=== PATIENT | female | born 1960 | race Caucasian/White ===

== ENCOUNTER 2021-06-11 12:57 | Outpatient (REF) | payer OTHER, SELFPAY ==
[2021-06-11 13:26] VITALS: BP 107/55; PULSE 64; RESP 16; TEMP 36.7; O2SAT 98; BMI 24.1
== END 2021-06-11 12:58 | disposition home or self-care (01) ==
LOC: HO.MS 12:57
PROVIDERS: Visit Provider Ophthalmology
PROC: (CPT 67840; principal; 2021-06-11 14:20)
DX: D23.122 Other benign neoplasm of skin of left lower eyelid, including canthus (principal)
CPT/HCPCS: 67840; 88304; 88305

== ENCOUNTER 2022-07-25 14:47 | Outpatient (REF) | payer OTHER, SELFPAY ==
--- NOTE | ~2022-07-25 | MM_ITS ---
EXAMINATION: MM SCREENING DIGITAL BREAST TOMOSYNTHESIS, BILATERAL CLINICAL INFORMATION: Screening. Asymptomatic. The lifetime risk of breast cancer based on the Tyrer-Cuzick Model is 4.3%. COMPARISON: Mammography: September 25, 2018 and studies dating back to June 01, 2014 TECHNIQUE: Digital breast tomosynthesis is performed in both the craniocaudal and mediolateral oblique views along with computer-aided detection (CAD). Synthesized 2D images are generated from the tomosynthesis. FINDINGS: There are scattered areas of fibroglandular density (ACR BI-RADS breast composition Category b). There are no significant masses, abnormal calcifications, or other abnormalities. MM/MM tomosynthesis screening BI IMPRESSION: No significant changes from prior exam. ASSESSMENT: BI-RADS 1: Negative RECOMMENDATION: Routine annual mammography screening. This patient's information was entered into a reminder system with a target due date for their next mammogram.
== END 2022-07-25 14:48 | disposition home or self-care (01) ==
LOC: HO.MAMMO 14:47
PROVIDERS: Visit Provider Nurse Practitioner Family
DX: Z12.31 Encounter for screening mammogram for malignant neoplasm of breast (principal)
CPT/HCPCS: 77063; 77067

== ENCOUNTER 2023-12-10 02:13 | Emergency (ER) | payer OTHER, SELFPAY ==
--- NOTE | ~2023-12-10 | CT_ITS ---
EXAMINATION: CT ABDOMEN AND PELVIS WITHOUT CONTRAST CLINICAL INFORMATION: Flank pain COMPARISON: 04/04/2020 TECHNIQUE: Multidetector volumetric imaging was performed from the superior aspect of the liver through the pubic symphysis. Sagittal and coronal reformatted images were obtained on the technologist's workstation. This CT examination was performed using dose optimization techniques as appropriate, variously including the following: *Automated exposure control *Adjustment of mA and/or kV according to patient size (this includes techniques or standardized protocols for targeted exams where dose is matched to indication/reason for exam; i.e. extremities or head) *Use of iterative reconstruction technique DLP: 524 mGy-cm FINDINGS: LUNG BASES: The visualized lung bases are unremarkable. LIVER, GALLBLADDER, AND BILIARY TREE: Small area of low attenuation left lobe which could represent a small lesion. This is equivocal. Measures 6 mm. Image 22. The gallbladder is unremarkable with no evidence of radiopaque gallstones, gallbladder wall thickening, or obvious pericholecystic inflammatory changes. PANCREAS: Unremarkable. SPLEEN: Unremarkable. ADRENAL GLANDS: Unremarkable. KIDNEYS AND URETERS: The kidneys are normal in size, shape, and attenuation. No hydronephrosis, hydroureter, or calculi seen. No perinephric stranding. BLADDER: Bladder is mildly thick-walled and irregular-appearing GASTROINTESTINAL TRACT: Nonobstructive bowel pattern. ABDOMINAL WALL: No significant hernia is appreciated. LYMPH NODES: There is no bulky adenopathy here. VASCULAR: Unremarkable. PELVIC VISCERA: Mild pelvic fluid. OSSEOUS STRUCTURES: Unremarkable. CT/CT abdomen pelvis wo IV con IMPRESSION: Some limitation from motion and of course lack of intravenous and oral contrast. The bladder wall appears mildly thickened and irregular. Cystitis would be a consideration. There is a small amount of free fluid in the deep pelvis of uncertain etiology. Other findings are as described above. Cannot rule out a small low-attenuation lesion left lobe of the liver which could be new from 2020 study. Recommend ultrasound to fully evaluate Fleischner guidelines were followed.
[2023-12-10 02:21] VITALS: BP 144/64; PULSE 70; RESP 18; TEMP 36.5; O2SAT 98; BMI 27.2
[2023-12-10 02:42] LABS: Basophils Percent Auto 0.5 % (0-2); Eosinophils Absolute Auto 0.1 X10*3/uL (0.0-0.4); Eosinophils Percent Auto 1.5 % (0-4); Hematocrit 39.6 % (37.0-47.0); Hemoglobin 13.2 g/dl (12.0-16.0); Imm Gran Abs Auto 0.02 X10*3/uL (0.00-0.03); Imm Gran Pct Auto 0.2 % (0.0-0.4); Lymphocytes Absolute Auto 3.9 X10*3/uL (1.2-4.9); Lymphocytes Percent Auto 44.4 % (20-40); MANUAL DIFF FLAG NO; Mean Corpuscular HGB Conc 33.3 g/dl (31.0-35.0); Mean Corpuscular Hemoglobin 29.6 pg (27.0-33.0); Mean Corpuscular Volume 88.8 fL (80.0-98.0); Mean Platelet Volume 8.9 fL (9.4-12.3); Monocytes Absolute Auto 0.8 X10*3/uL (0.1-1.2); Monocytes Percent Auto 8.9 % (2-11); Neutrophils Percent Auto 44.5 % (45-73); Platelet Count 268 X10*3/uL (160-400); Red Blood Count 4.46 X10*6/uL (4.20-5.50); White Blood Count 8.9 X10*3/uL (4.8-10.8)
[2023-12-10 02:43] LABS: Appearance Urine Turbid; Color Urine Yellow; Glucose Urine UA Negative (Negative); Leukocyte Esterase Urine Large (3+) (Negative); Nitrite Urine Negative (Negative); UMIC TRIGGER UACC YES; Urine Blood Large (3+) (Negative); Urine Ketones Negative (Negative); Urine Protein 30 (1+) mg/dL (Neg-Trace)
[2023-12-10 02:58] LABS: Alanine Aminotransferase 13 U/L (0-31); Albumin Level 4.1 g/dL (3.5-5.0); Alkaline Phosphatase 67 U/L (39-117); Anion Gap 12 (12-20); Aspartate Amino Transferase 20 U/L (5-31); Bacteria Urine None Seen (None Seen); Bilirubin Total 0.3 mg/dL (0.0-1.0); Blood Urea Nitrogen 18 mg/dL (9-16); Calcium 9.7 mg/dL (8.4-10.2); Carbon Dioxide 27 mmol/L (22-29); Chloride 108 mmol/L (96-108); Creatinine Clr Calc Pharmacy 66.6; Estimated Glomerular Filt Rate > 60; Glucose Random 107 mg/dL (60-115); Hyaline Casts Urine 0-2 /LPF (0-2); Potassium 4.6 mmol/L (3.3-5.1); RBC Urine >20 /HPF (0-2); Sodium 142 mmol/L (135-145); Squamous Epithelial Cell Urine 0-2 /HPF (0-2); Total Protein 7.6 g/dL (6.5-8.0); UACC Culture Trigger YES; WBC Urine >50 /HPF (0-5)
[2023-12-10 05:06] VITALS: BP 133/64; PULSE 63; RESP 17; TEMP 36.4; O2SAT 98
--- NOTE | 2023-12-10 05:31 | PC.NURSE ---
pt from home, a&ox4, reporting onset of urinary burning, urgency, frequency. pt denies blood in urine. reports left sided flank pain. pt reports cousin had brought a medication from [place] for her to take for symptoms and reported symptoms improved. unknown medication.
--- NOTE | 2023-12-10 06:49 | ED_ITS ---
HPI - Female Genitourinary General Chief complaint: Urogenital-Female Stated complaint: unable to urinate Time Seen by Provider: 12/10/23 06:39 Source: patient, RN notes reviewed and old records reviewed Mode of arrival: ambulatory Limitations: no limitations History of Present Illness ED Provider: SUREKHA SAAVEDRA PA-C HPI Narrative: 63-year-old female with past medical history significant for pyelonephritis approximately 4 years ago presents to the ED today for evaluation of urinary frequency, urgency and dribbling x2 days. Endorses associated suprapubic pain and left flank pain. She has been taking a medication at home, canaophran TID which was given to her by her daughter without relief. Reports taking 3 doses yesterday. Woke up this morning with continued pain, stating that she is now having to urinate every 2 minutes. Otherwise feels well. Denies fever, chills, N/V, diarrhea, constipation, headache, dizziness. Related Data Previous Rx's ?Medication ?Instructions ?Recorded cefuroxime axetil 250 mg tablet 250 mg PO Q12H 7 days #14 tabs 12/10/23 phenazopyridine 200 mg tablet 200 mg PO TID 6 doses #6 tabs 12/10/23 (Pyridium) Allergies Allergy/AdvReac Type Severity Reaction Status Date / Time No Known Allergies* Allergy Unknown Uncoded 12/10/23 02:29 Review of Systems 2 Review of Systems: Constitutional: No fever, chills, fatigue, night sweats, weight changes ENT/Mouth: No ear pain, hearing loss, nasal congestion, sinus pain, rhinorrhea, sore throat Eyes: No eye pain, swelling, redness, vision changes, discharge Cardio: No chest pain, palpitations, GARCIA, orthopnea, peripheral edema Pulm: No SOB, cough, sputum, wheezing, dyspnea, hemoptysis GI: No nausea, vomiting, hematemesis, abdominal pain, diarrhea, constipation, hematochezia, melena : No irregular bleeding, dysuria, hesitancy, hematuria, flank pain, urinary flow changes, urinary incontinence or retention, + frequency, + urgency, + dribbling MSK: No back pain, neck pain, joint pain, myalgias Skin: No lesions, rashes Neuro: No weakness, numbness, paresthesias, LOC, dizziness, headache Psych: No anxiety/panic, depression, SI/HI, AH/VH All other systems reviewed and are negative. [facility] Past Medical History Attestation statement: The following information was validated with the patient. Source: old records reviewed and nursing notes reviewed Social History Social History Smoked in Last 30 Days: No Use of substances other than those prescribed or required for medical reasons: No Advance Directives: No Advance Directives Information Provided: No Patient : No Physical Exam 2 Vital Signs: Vital Signs: Last Vital Signs Temp 98.0 F 12/10/23 11:23 Pulse 59 12/10/23 11:23 Resp 16 12/10/23 11:23 BP 136/71 12/10/23 11:23 Pulse Ox 97 12/10/23 11:23 O2 Del Method Room Air 12/10/23 11:23 BMI result Body Mass Index 27.2 Vital signs stable Const: General: cooperative, healthy appearing, comfortable and no acute distress Orientation/consciousness: patient oriented x3 Limitations: no limitations HEENT: Head: Yes normal to inspection, Yes No palpable skull fracture present, Yes normocephalic and Yes atraumatic Eyes: General: appearance normal, both eyes and all related structures C onjunctivae: conjunctivae normal Sclerae: sclerae normal Pupils: Equal, round and reactive pupils present Neck: Neck: Yes normal visual inspection, Yes full ROM, Yes no lymphadenopathy and Yes no meningeal signs Resp: Effort & Inspection: normal respiratory effort and able to speak in complete sentences Auscultation: clear to auscultation bilaterally Cardio: Rate: regular rate Rhythm: regular rhythm GI: Other: + abdomen soft, nondistended, nontender to palpation, no rebound tenderness or guarding, normoactive bs x4 : Other: + minimal left CVAT Skin: General skin exam: no rashes or lesions noted Neuro: General: patient oriented x3, gait normal, no meningeal signs and no focal motor deficits Cranial nerves: Yes Equal, round and reactive pupils present Course Course Course Narrative: 1035-- CBC without leukocytosis or left shift. No anemia. H&H stable. Chemistry without acute electrolyte abnormality requiring intervention. BUN slightly elevated to 18. Creatinine normal. Normal kidney function. Urine with large amount of blood, large amount of leukocyte esterase, over 20 RBCs, over 50 WBCs. No bacteria seen. Negative nitrites. CT abd/pelvis showing mild thickening of the bladder wall, consistent with cystitis. Patient given 1 dose of Ceftin and Pyridium in the ED today. This will be sent to pharmacy. Discussed all workup results with patient. I feel she is safe for discharge at this time. Patient has remained stable throughout ED visit today. Discussed worrisome signs and symptoms and when to return to the ED. All questions answered at this time. Patient is agreeable with disposition and stable for discharge. Medications Administered Discontinued Medications Generic Name Dose Route Start Last Admin Trade Name Freq PRN Reason Stop Dose Admin Acetaminophen 975 mg 12/10/23 07:09 12/10/23 07:39 Acetaminophen 325 Mg Tablet PO 12/10/23 07:10 975 mg ONCE ONE Administration Cefuroxime Axetil 250 mg 12/10/23 07:09 12/10/23 07:39 Cefuroxime Axetil 250 Mg Tablet PO 12/10/23 07:10 250 mg ONCE ONE Administration Ketorolac Tromethamine 30 mg 12/10/23 10:51 12/10/23 10:55 Ketorolac Tromethamine 30 Mg/Ml Vial IM 12/10/23 10:52 30 mg ONCE ONE Administration Phenazopyridine HCl 200 mg 12/10/23 07:09 12/10/23 07:39 Phenazopyridine Hcl 200 Mg Tablet PO 12/10/23 07:10 200 mg ONCE ONE Administration Medical Decision Making Medical Decision Making [facility] Narrative: 63-year-old female with past medical history significant for pyelonephritis approximately 4 years ago presents to the ED today for evaluation of urinary frequency, urgency and dribbling x2 days. Vital signs stable. afebrile. she is well appearing and in NAD. on exam, there is minimal left CVAT. abdomen is soft, ND/NT, no rebound tenderness or guarding. normoactive bs x4. skin w/d/i. Differential diagnosis includes urinary tract infection, renal colic, nephrolithiasis. Lower suspicion for pyelonephritis, hydronephrosis, obstructive uropathy. Plan for labs, UA, abdomen/pelvis CT scan, pain control, and re-evaluation. Differential Diagnosis Differential Diagnoses: The differential diagnosis associated with the presentation includes As above Admission/Observation Not indicated Lab Data [facility] Lab Attestation statement: I reviewed the patient's lab results. As above 12/10/23 02:37 12/10/23 02:37 Labs: Lab Results 12/10/23 Range/Units 02:37 WBC 8.9 (4.8-10.8) X10*3/uL RBC 4.46 (4.20-5.50) X10*6/uL Hgb 13.2 (12.0-16.0) g/dl Hct 39.6 (37.0-47.0) % MCV 88.8 (80.0-98.0) fL MCH 29.6 (27.0-33.0) pg MCHC 33.3 (31.0-35.0) g/dl RDW 12.0 (11.0-16.0) % Plt Count 268 (160-400) X10*3/uL MPV 8.9 L (9.4-12.3) fL Immature Gran % (Auto) 0.2 (0.0-0.4) % Neut % (Auto) 44.5 L (45-73) % Lymph % (Auto) 44.4 H (20-40) % [place] % (Auto) 8.9 (2-11) % Eos % (Auto) 1.5 (0-4) % Baso % (Auto) 0.5 (0-2) % Lymph # (Auto) 3.9 (1.2-4.9) X10*3/uL [place] # (Auto) 0.8 (0.1-1.2) X10*3/uL Eos # (Auto) 0.1 (0.0-0.4) X10*3/uL Baso # (Auto) 0.0 (0.0-0.2) X10*3/uL Abs Immat Gran (auto) 0.02 (0.00-0.03) X10*3/uL Absolute Neuts (auto) 4.0 (2.0-8.3) x10*3/uL Absolute Nucleated RBC 0.000 (0.0-0.012) X10*3/uL Nucleated RBC % (auto) 0.0 (0.0-0.2) /100WBC Sodium 142 (135-145) mmol/L Potassium 4.6 (3.3-5.1) mmol/L Chloride 108 (96-108) mmol/L Carbon Dioxide 27 (22-29) mmol/L Anion Gap 12 (12-20) BUN 18 H (9-16) mg/dL Creatinine 0.84 (0.5-1.4) mg/dL Estim Creat Clear Calc 66.6 Estimated GFR > 60 Random Glucose 107 (60-115) mg/dL Calcium 9.7 (8.4-10.2) mg/dL Total Bilirubin 0.3 (0.0-1.0) mg/dL AST 20 (5-31) U/L ALT 13 (0-31) U/L Alkaline Phosphatase 67 (39-117) U/L Total Protein 7.6 (6.5-8.0) g/dL Albumin 4.1 (3.5-5.0) g/dL Urine Color Yellow Urine Appearance Turbid Urine pH 6.0 (5.0-9.0) Ur Specific [place] 1.010 (1.005-1.025) Urine Protein 30 (1+) H (Neg-Trace) mg/dL Urine Glucose (UA) Negative (Negative) mg/dL Urine Ketones Negative (Negative) mg/dL Urine Blood Large (3+) H (Negative) Urine Nitrite Negative (Negative) Ur Leukocyte Esterase Large (3+) H (Negative) Urine RBC >20 H (0-2) /HPF Urine WBC >50 H (0-5) /HPF Ur Squamous Epith Cells 0-2 (0-2) /HPF Urine Bacteria None Seen (None Seen) Hyaline Casts 0-2 (0-2) /LPF Independent Interpretation I performed an independent interpretation of an: CT Scan Interpretation: CT abd/pelvis showing thickening of bladder wall, agree with radiologist's interpretation. Radiology Impression Discussion of test interpretation with radiology: I have reviewed the radiologist's reading. Radiologist Impression: EXAMINATION: CT ABDOMEN AND PELVIS WITHOUT CONTRAST CLINICAL INFORMATION: Flank pain COMPARISON: 04/04/2020 TECHNIQUE: Multidetector volumetric imaging was performed from the superior aspect of the liver through the pubic symphysis. Sagittal and coronal reformatted images were obtained on the technologist's workstation. This CT examination was performed using dose optimization techniques as appropriate, variously including the following: *Automated exposure control *Adjustment of mA and/or kV according to patient size (this includes techniques or standardized protocols for targeted exams where dose is matched to indication/reason for exam; i.e. extremities or head) *Use of iterative reconstruction technique DLP: 524 mGy-cm FINDINGS: LUNG BASES: The visualized lung bases are unremarkable. LIVER, GALLBLADDER, AND BILIARY TREE: Small area of low attenuation left lobe which could represent a small lesion. This is equivocal. Measures 6 mm. Image 22. The gallbladder is unremarkable with no evidence of radiopaque gallstones, gallbladder wall thickening, or obvious pericholecystic inflammatory changes. PANCREAS: Unremarkable. SPLEEN: Unremarkable. ADRENAL GLANDS: Unremarkable. KIDNEYS AND URETERS: The kidneys are normal in size, shape, and attenuation. No hydronephrosis, hydroureter, or calculi seen. No perinephric stranding. BLADDER: Bladder is mildly thick-walled and irregular-appearing GASTROINTESTINAL TRACT: Nonobstructive bowel pattern. ABDOMINAL WALL: No significant hernia is appreciated. LYMPH NODES: There is no bulky adenopathy here. VASCULAR: Unremarkable. PELVIC VISCERA: Mild pelvic fluid. OSSEOUS STRUCTURES: Unremarkable. CT/CT abdomen pelvis wo IV con IMPRESSION: Some limitation from motion and of course lack of intravenous and oral contrast. The bladder wall appears mildly thickened and irregular. Cystitis would be a consideration. There is a small amount of free fluid in the deep pelvis of uncertain etiology. Other findings are as described above. Cannot rule out a small low-attenuation lesion left lobe of the liver which could be new from 2020 study. Recommend ultrasound to fully evaluate. Fleischner guidelines were followed. Critical Care Time Critical Care Time Critical Care Time: No Discharge Plan Discharge Clinical Impression: Cystitis Urinary tract infection Qualifiers: Urinary tract infection type: acute cystitis Hematuria presence: with hematuria Qualified Code(s): N30.01 - Acute cystitis with hematuria Constipation Qualifiers: Constipation type: unspecified constipation type Qualified Code(s): K59.00 - Constipation, unspecified Patient Disposition: Home, Self-Care Instructions: Urinary Tract Infection in Women (ED), Urinary Tract Infection in Older Adults (ED) Additional Instructions: Your labs today are reassuring. Your urine today was positive for infection. The CT scan of your abdomen/pelvis shows mild constipation. You may take [id number] MiraLax as needed to move your bowels. Ceftin is an antibiotic that has been sent to your pharmacy. Take this as prescribed and do not miss any doses. You must complete the entire course of antibiotics. If you do not, there is a risk of the infection coming back or worsening. Pyridium is an analgesic that can relieve the pain, burning, and discomfort caused by infection or irritation of the urinary tract. It is not an antibiotic and will not cure the infection itself. This has been sent to your pharmacy. Take this as needed for discomfort. Pyridium can cause your urine to turn a reddish orange color.? Follow up with your primary care provider as needed. If you develop a fever or new/ worsening symptoms call 911 or come back to the ER for further evaluation. Prescriptions: New cefuroxime axetil 250 mg tablet 250 mg PO Q12H 7 Days Qty: 14 0RF phenazopyridine [Pyridium] 200 mg tablet 200 mg PO TID Qty: 6 0RF Referrals: Dorene Knight NP [Primary Care Provider] - Interventions: ED Discharge Assessment Last Done: 12/10/23 11:23 Discharge Date/Time: 12/10/23 11:24 Print Language: Slovenian
[2023-12-10] MEDS: cefuroxime axetiL 250 MG TABLET PO (07:39)
[2023-12-10] MEDS: Phenazopyridine HCL 200 MG TABLET PO (07:39)
[2023-12-10] MEDS: Acetaminophen 325 MG TABLET 975 MG PO (07:39)
--- NOTE | 2023-12-10 07:43 | PC.NURSE ---
pt medicated per mar, pt tolerated well with water.
[2023-12-10 08:04] VITALS: BP 134/59; PULSE 56; RESP 18; TEMP 36.8; O2SAT 99
--- NOTE | 2023-12-10 09:12 | PC.NURSE ---
this RN resumed care of pt at 0800. a&ox4. vss and up to date. pt verbalizing pain level decreased to a 6/10 post medication administration. resting comfortably in no apparent distress on the stretcher. no sob./wob noted. respirations even and unlabored. pt waiting for CT results at this time. plan of care ongoing. call vaughn placed within reach.
[2023-12-10] MEDS: Ketorolac Tromethamine 30 MG/ML VIAL IM (10:55)
--- NOTE | 2023-12-10 11:12 | PC.NURSE ---
pt c/o increase in pain. medicated per provider order.
[2023-12-10 11:22] VITALS: BP 136/71; PULSE 59; RESP 16; TEMP 36.7; O2SAT 97
[2023-12-10 11:23] VITALS: BP 136/71; PULSE 59; RESP 16; TEMP 36.7; O2SAT 97
== END 2023-12-10 11:24 | disposition home or self-care (01) ==
PROVIDERS: Emergency Provider Emergency Medicine; PCP Nurse Practitioner Family
DX: N30.01 Acute cystitis with hematuria (principal); K59.00 Constipation, unspecified; R10.30 Lower abdominal pain, unspecified
CPT/HCPCS: 36415; 74176; 80053; 81001; 85025; 87086; 87088; 87186; 96372; 99284; J1885